=== PATIENT | female | born 1960 | race Caucasian/White ===

== ENCOUNTER 2016-12-30 13:56 | Observation (INO) | payer OTHER ==
[2016-12-30] VITALS (10 sets, daily range): BP systolic 99–158; BP diastolic 57–82; PULSE 62–97; RESP 15–22; TEMP 98.1–98.5; O2SAT 93–100
[~2016-12-30] VITALS: Ht 165.1 cm; Wt 72.5 kg
[~2016-12-30 13:56] MED LIST: ASPI81 PO; CALC600T34 PO; FEXO180 PO; FISH1000 PO; GINKO BILOBA PO; TAB-TAB PO; [UNRECOGNIZED DRUG - OTHER] PO
--- NOTE | 2016-12-30 14:13 | PD ---
Physical Exam Time Seen by Provider: 14:12 Narrative 56yo F c/o numbness, tingling, and pain in her left upper arm, on and off for about a week. Having left sided chest pain that started about an hour ago. + heart palpitations. Denies SOB. Patient seen in triage. VS reviewed. Awaiting bed placement. Data Data Last Documented VS Vital Signs Date Time Temp Pulse Resp B/P Pulse Ox O2 Delivery O2 Flow Rate FiO2 12/30/16 14:00 98.1 97 22 141/76 98 Room Air MDM Supervised Visit with MANDO: Dee Dee Glasgow Dec 30, 2016 14:13
[2016-12-30 15:27] LABS: BASOPHIL # 0.1 TH/MM3 (0-0.2); BASOPHIL % 0.9 % (0.0-2.0); EOSINOPHIL # 0.1 TH/MM3 (0-0.4); EOSINOPHIL % 1.5 % (0.0-4.0); HEMATOCRIT 44.2 % (35.0-46.0); HEMO FLAGS DIFF FINAL; LYMPHOCYTE # 2.3 TH/MM3 (1.0-4.8); MEAN CELL VOLUME 88.5 FL (80.0-100.0); MEAN CORPUSCULAR HEMOGLOBIN 29.8 PG (27.0-34.0); MEAN CORPUSCULAR HGB CONC 33.6 % (32.0-36.0); MONO % 6.2 % (0.0-8.0); NEUT % 62.4 % (16.0-70.0); PLATELET COUNT 263 TH/MM3 (150-450); RED BLOOD COUNT 4.99 MIL/MM3 (4.00-5.30); RED CELL DISTRIBUTION WIDTH 13.5 % (11.6-17.2)
[2016-12-30 15:33] LABS: PROTHROMBIN TIME - PATIENT 10.6 SEC (9.8-11.6)
[2016-12-30 15:37] LABS: BLOOD, URINE NEG (NEG); GLUCOSE,URINE NEG (NEG); KETONE, URINE NEG (NEG); NITRITE,URINE NEG (NEG); SQUAMOUS EPITHELIAL CELL URINE <1 /hpf (0-5); URINE COLOR LIGHT-YELLOW (YELLW/STRAW)
[2016-12-30 15:39] LABS: COMMENT (UR) CULT NOT INDICATED; CULTURE IF INDICATED CULT NOT INDICATED
[2016-12-30 15:48] LABS: ANION GAP 6 MEQ/L (5-15); BICARBONATE 28.7 MEQ/L (21.0-32.0); BLOOD UREA NITROGEN 21 MG/DL (7-18); CHLORIDE 104 MEQ/L (98-107); CREATINE KINASE 88 U/L (26-192); GLOMERULAR FILTRATION RATE 62 ML/MIN (>89); POTASSIUM 3.3 MEQ/L (3.5-5.1); SODIUM (NA) 139 MEQ/L (136-145)
[2016-12-30] MEDS ORDERED: POTASSIUM CHLORIDE 20 MEQ CONTROLLED RELEASE TAB PO ONE (16:00)
--- NOTE | 2016-12-30 16:04 | RADRPT ---
EXAM DATE/TIME: 12/30/2016 15:12 [place] COMPARISON: No previous studies available for comparison. INDICATIONS : Chest palpitations and left shoulder pain. MEDICAL HISTORY : high blood pressure SURGICAL HISTORY : None. ENCOUNTER: Initial ACUITY: 1 week PAIN SCORE: 0/10 LOCATION: Bilateral chest FINDINGS: PA and lateral views of the chest demonstrate the lungs to be symmetrically aerated without evidence of mass, infiltrate or effusion. The cardiomediastinal contours are unremarkable. Osseous structure s are intact. CONCLUSION: 1. No acute cardiopulmonary disease. Soren Quan MD on December 30, 2016 at 16:02 Board Certified Radiologist. This report was verified electronically.
[2016-12-30] MEDS ORDERED: [UNRECOGNIZED DRUG - CODE] PO (16:05)
[2016-12-30] MEDS ORDERED: ROBA750T PO (16:05)
[2016-12-30] MEDS ORDERED: MULT1TAB46 PO (16:05)
[2016-12-30] MEDS ORDERED: CYAN25005 PO (16:05)
[2016-12-30] MEDS ORDERED: AMLO5TAB2 PO (16:05)
[2016-12-30] MEDS ORDERED: LISI10TA3 PO (16:05)
[2016-12-30] MEDS ORDERED: NITROGLYCERIN 0.4 MG SL 25 TABS/BTL SL ONE (16:30)
[2016-12-30] MEDS ORDERED: ASPIRIN 325 MG TAB PO ONE (16:30)
--- NOTE | 2016-12-30 17:16 | PD ---
HPI Chief Complaint: Chest Pain Time Seen by Provider: 16:01 Travel History International Travel<30 days: No Contact w/Intl Traveler<30days: No Traveled to known affect area: No History of Present Illness HPI This is a 56-year-old postmenopausal female with a past medical history of hypertension hold as a father who was recently diagnosed with coronary artery disease he isn't currently in his 70s that presents with a complaint of five- day history of intermittent left arm pain and numbness and neck pain. Patient notes mild left-sided chest pain. Patient works for [employer] and noted palpitations and reoccurring discomfort in the left arm and in the left side of the neck. Patient denies shortness of breath and lightheadedness dizziness nausea and vomiting. However patient felt as if she could belch she would feel much better. Patient has never had a stress test. Patient also denies back pain, no pain weakness in the arms and legs off tenderness and swelling . PFSH Past Medical History Cancer: No Cardiovascular Problems: No Diabetes: No Diminished Hearing: No Glaucoma: No Hepatitis: No Hiatal Hernia: No Hypertension: Yes Medical other: Yes (ARTHRITIS) Respiratory: Yes (ASTHMA CHILD) Thyroid Disease: No Past Surgical History Abdominal Surgery: No Cardiac Surgery: No Ear Surgery: No Endocrine Surgery: No Eye Surgery: No Genitourinary Surgery: No Gynecologic Surgery: Yes (D&C) Oral Surgery: No Pacemaker: No Thoracic Surgery: Yes (BREAST AUGMENTATION) Other Surgery: Yes Social History Alcohol Use: Yes (OCC.) Tobacco Use: Yes (QUIT 1977) Substance Use: No Allergies-Medications (Allergen,Severity, Reaction): Coded Allergies: Onion (Unverified Allergy, Severe, n/v, 05/15/10) Codeine (Verified Allergy, Unknown, 12/30/16) Reported Meds & Prescriptions Reported Meds & Active Scripts Active Reported Vitamin B-50 Complex Tablet (Vitamin B Complex/Folic Acid) 0.4 Mg Tablet 1 Tab PO DAILY Vitamin B12 (Cyanocobalamin (Vitamin B-12)) 2,500 Mcg Tab.chew 1 Tab PO DAILY Multi Vitamin Daily (Multiple Vitamin) 1 Tab Tab 1 Tab PO DAILY Robaxin (Methocarbamol) 750 Mg Tab 750 Mg PO DAILY Amlodipine (Amlodipine Besylate) 5 Mg Tab 5 Mg PO DAILY Lisinopril 10 Mg Tab 10 Mg PO DAILY Review of Systems Except as stated in HPI: all other systems reviewed are Neg General / Constitutional: No: Fever, Chills, Weight Gain, Weight Loss, Other Eyes: No: Diploplia, Blurred Vision, Photophobia, Drainage, Redness, Foreign Body Sensation, Pain, Tearing, Blind Spots, Visual changes, Blindness, Other HENT: No: Headaches, Vertigo, Lightheadedness, Sore Throat, Rhinitis, Rhinorrhea, Congestion, Nosebleed, Neck Stiffness, Neck Pain, Masses, Gingival Bleeding, Dental Difficulties, Ear Discharge, Earache, Other Cardiovascular: Positive: Chest Pain or Discomfort, Palpitations, No: Irregular Rhythm, Tachycardia, Diaphoresis, Syncope, Dyspnea on exertion, Varicosities, Edema, Cyanosis, Varicosities, Phlebitis, Claudication, Other Respiratory: Positive: Cough, No: Shortness of Breath, Wheezing, Sneezing, Orthopnea, Hemoptysis, Stridor, Night Sweats, Pleuritic Pain, Other Gastrointestinal: Positive: Nausea, No: Vomiting, Diarrhea, Abdominal Pain, Hematemesis, Hematochezia, Constipation, Changes in Bowel Habits, Indigestion, Dysphagia, Loss of Appetite, Other Genitourinary: No: Urgency, Frequency, Dysuria, Nocturia, Hematuria, Decreased Urinary Output, Oliguria, Hesitancy, Dribbling, Incontinence, Pelvic Pain, Flank Pain, Dyspareunia, Discharge, Dysmenorrhea, Menorrhagia, Metorrhagia, Vaginal Bleeding, Other Musculoskeletal: Positive: Other (left arm pain neck pain left side) Skin: No Rash, No Itching, No Dryness, No Lumps, No Hives, No Change in Pigmentation, No Change in nails, No Alopecia, No Lesions, No Breast Lumps, No Breast Tenderness, No Breast Swelling, No Other Neurologic: Positive: Other (left arm numbness and tingling ), No: Weakness, Dizziness, Syncope, Focal Abnormalities, Coordination Problem, Tremor, Ataxia, Headache, Change in Mentation, Slurred Speech, Paresthesia, Incontinence, Seizures, Sensory Disturbance Psychiatric: No: Anxiety, Depression, Suicidal Ideations, Disorder of Thought, Mood Disorder, Substance Abuse, Homicidal Ideation, Other Endocrine: No: Heat Intolerance, Cold Intolerance, Polyuria, Polydipsia, Other Hematologic/Lymphatic: No: Easy Bruising, Lymph Node Enlargement, Other Physical Exam Narrative GENERAL: 56-year-old in no apparent distress SKIN: Focused skin assessment warm/dry.no lesions no cyanosis no erythema HEAD: Atraumatic. Normocephalic. EYES: Pupils equal and round and reactive . No scleral icterus. No injection or drainage. ENT: No nasal bleeding or discharge. Mucous membranes pink and moist. NECK: Trachea midline. No JVD. No reproducible neck tenderness on top CARDIOVASCULAR: S1-S2 appreciated. Regular rate and rhythm. No murmur appreciated. Pulses normal throughout no reproducible chest wall tenderness on palpation RESPIRATORY: No accessory muscle use. Clear to auscultation. Breath sounds equal bilaterally. GASTROINTESTINAL: Abdomen soft, non-tender, nondistended. Hepatic and splenic margins not palpable. Bowel sounds normal. No peritoneal signs. MUSCULOSKELETAL: No obvious deformities. No clubbing. No cyanosis. No edema. Neck pain and chest pain not exacerbated with movement of left arm and neck or thoracic spine NEUROLOGICAL: Awake and alert and oriented 3.. No obvious cranial nerve deficits. Motor and sensory exam grossly within normal limits. Normal speech. No meningeal signs. PSYCHIATRIC: Appropriate mood and affect; insight and judgment normal. No suicidal or homicidal ideation. Data Data Last Documented VS Vital Signs Date Time Temp Pulse Resp B/P Pulse Ox O2 Delivery O2 Flow Rate FiO2 12/30/16 16:05 100 Room Air 12/30/16 14:00 98.1 97 22 141/76 Orders Electrocardiogram (12/30/16 14:25) Complete Blood Count With Diff (12/30/16 14:25) Basic Metabolic Panel (Bmp) (12/30/16 14:25) Ckmb (Isoenzyme) Profile (12/30/16 14:25) Troponin I (12/30/16 14:25) Iv Access Insert/Monitor (12/30/16 14:25) Ecg Monitoring (12/30/16 14:25) Oxygen Administration (12/30/16 14:25) Oximetry (12/30/16 14:25) Prothrombin Time / Inr (Pt) (12/30/16 14:45) Urinalysis - C+S If Indicated (12/30/16 14:45) Chest, Pa & Lat (12/30/16 14:25) Potassium Chloride (Kcl) (12/30/16 16:00) Aspirin (Aspirin) (12/30/16 16:30) Nitroglycerin Sl (Nitrostat Sl) (12/30/16 16:30) Place In Observation (12/30/16 17:27) Activity Bed Rest With Brp (12/30/16:) Vital Signs (Adult) Q4H (12/30/16 17:) Cardiac Rhythm .As Directed (12/30/16 17:) Notify Dr: Other .PRN (12/30/16) Notify Dr. Parameters (12/30/16) Resp Oxygen Nasal Cannula (12/30/16 ) Diet Heart Healthy (12/30/16 Dinner) Ckmb (Isoenzyme) Profile (12/30/16 17:40) Ckmb (Isoenzyme) Profile (12/30/16 20:40) Troponin I (12/30/16 20:40) Troponin I (12/30/16 23:40) Electrocardiogram (12/30/16:) Electrocardiogram (12/30/16 20:27) ^ Obtain (12/30/16:) Sodium Chloride 0.9% Flush (Ns Flush) (12/30/16 17:30) Sodium Chloride 0.9% Flush (Ns Flush) (12/30/16 21:00) Nitroglycerin Sl (Nitrostat Sl) (12/30/16 17:30) Aspirin (Aspirin) (12/31/16 09:00) Mortarman / Telemetry LEVY.Q8H (12/30/16 17:) Labs Laboratory Tests Test 12/30/16 14:40 White Blood Count 8.0 TH/MM3 Red Blood Count 4.99 MIL/MM3 Hemoglobin 14.8 GM/DL Hematocrit 44.2 % Mean Corpuscular Volume 88.5 FL Mean Corpuscular Hemoglobin 29.8 PG Mean Corpuscular Hemoglobin 33.6 % Concent Red Cell Distribution Width 13.5 % Platelet Count 263 TH/MM3 Mean Platelet Volume 9.0 FL Neutrophils (%) (Auto) 62.4 % Lymphocytes (%) (Auto) 29.0 % Monocytes (%) (Auto) 6.2 % Eosinophils (%) (Auto) 1.5 % Basophils (%) (Auto) 0.9 % Neutrophils # (Auto) 5.0 TH/MM3 Lymphocytes # (Auto) 2.3 TH/MM3 Monocytes # (Auto) 0.5 TH/MM3 Eosinophils # (Auto) 0.1 TH/MM3 Basophils # (Auto) 0.1 TH/MM3 CBC Comment DIFF FINAL Differential Comment Prothrombin Time 10.6 SEC Prothromb Time International 1.0 RATIO Ratio Urine Color LIGHT-YELLOW Urine Turbidity CLEAR Urine pH 6.0 Urine Specific [place] 1.004 Urine Protein NEG mg/dL Urine Glucose (UA) NEG mg/dL Urine Ketones NEG mg/dL Urine Occult Blood NEG Urine Nitrite NEG Urine Bilirubin NEG Urine Urobilinogen LESS THAN 2.0 MG/DL Urine Leukocyte Esterase NEG Urine RBC LESS THAN 1 /hpf Urine Squamous Epithelial <1 /hpf Cells Microscopic Urinalysis Comment CULT NOT INDICATED Sodium Level 139 MEQ/L Potassium Level 3.3 MEQ/L Chloride Level 104 MEQ/L Carbon Dioxide Level 28.7 MEQ/L Anion Gap 6 MEQ/L Blood Urea Nitrogen 21 MG/DL Creatinine 0.93 MG/DL Estimat Glomerular Filtration 62 ML/MIN Rate Random Glucose 103 MG/DL Calcium Level 10.0 MG/DL Total Creatine Kinase 88 U/L Troponin I LESS THAN 0.02 NG/ML MDM Medical Decision Making Medical Screen Exam Complete: Yes Emergency Medical Condition: Yes Medical Record Reviewed: Yes Interpretation(s) EKG shows normal sinus rhythm nonspecific ST changes Differential Diagnosis Pharyngeal diagnoses chest wall pain anxiety acute coronary syndrome cervicalgia Narrative Course 6-year-old with risk factors of hypertension postmenopausal state father just recently diagnosed with CAD but he was in the 70s chest pain not reproducible on exam and occurs at rest with associated left arm pain and left neck pain troponin time 1 negative EKG shows a nonischemic pattern chest x-ray unremarkable patient given an aspirin and 1 sublingual nitroglycerin and states she feels better Transfer patient to the chest pain center for repeat enzymes and possible stress test in the a.m. for further management. Diagnosis Primary Impression: Chest pain at rest Additional Impression: left arm and neck discomfort Admitting Information Admitting Physician Requests: Observation Condition: Stable Yaritza Landin MD Dec 30, 2016 17:16
[2016-12-30] MEDS ORDERED: NITROGLYCERIN 0.4 MG SL 25 TABS/BTL SL PRN ×2 (17:30→19:15)
[2016-12-30] MEDS ORDERED: SODIUM CHLORIDE 0.9% FLUSH 10 ML FLUSH IV FLUSH PRN ×2 (17:30→19:15)
[2016-12-30 19:10] LABS: CREATINE KINASE 73 U/L (26-192)
[2016-12-30] MEDS ORDERED: ONDANSETRON HCL 4 MG/2 ML VIAL IV PRN (19:15)
[2016-12-30] MEDS ORDERED: ACETAMINOPHEN 500 MG CPLT PO PRN (19:15)
[2016-12-30] MEDS: SODIUM CHLORIDE 0.9% FLUSH 10 ML FLUSH IV FLUSH SCH ×2 (20:57)
[2016-12-30 21:46] LABS: CREATINE KINASE 63 U/L (26-192)
[2016-12-31 03:44] VITALS: BP 100/64; PULSE 74; RESP 18; TEMP 97.8; O2SAT 95
[2016-12-31 07:36] VITALS: BP 105/75; PULSE 74; RESP 18; TEMP 97.8; O2SAT 95
[2016-12-31] MEDS ORDERED: ASPIRIN 325 MG TAB PO SCH (09:00)
[2016-12-31 09:14] VITALS: O2SAT 92
--- NOTE | 2016-12-31 09:26 | HHI.HP ---
HPI Primary Care Physician Frank Chahal MD, PhD Chief Complaint Chest pressure History of Present Illness 56-year-old female with known hypertension presents to emergency room for further evaluation of chest pressure. Onset yesterday afternoon at 1 PM while at work. She is employee for [employer]. She was sitting during initial episode. Location left anterior chest. Described as pressure, throbbing, with occasional fluttering feeling. Duration approximately 1 minute. No known precipitating or relieving factors. Breathing did not make pain better or worse. Although she does state she felt if she could belch would help the discomfort. No associated symptoms of shortness of breath, nausea, or diaphoresis. Endorses over the last week intermittent left arm and left shoulder tingling. Review of Systems General: No fatigue,weakness, fever, chills, recent illness, or change in appetite HEENT: No PETE, no vision changes, no nasal congestion or drainage, no dysphasia CV: As stated above. Denies any current chest pain or pressure. Endorses occasional palpitations throughout evening. RESP: No SOB, cough, wheeze, or recent URI GI: No nausea, vomiting, bowel changes, diarrhea, constipation, or pain. No unintentional weight gain or weight loss : No dysuria, urgency, or frequency EXT: No lower leg edema, no paraesthesias MS: No discomfort or change in ROM NEURO: No difficulty with balance, LOC, motor/sensory deficits PSYCH: No anxiety, depression, or situational stress SKIN: No rashes, no concerning lesions Past Family Social History Allergies: Coded Allergies: Onion (Unverified Allergy, Severe, n/v, 05/15/10) Codeine (Verified Allergy, Unknown, 12/30/16) Past Medical History Hypertension, arthritis, C3-C4 bulging disc Past Surgical History Right trigger thumb surgery Reported Medications Active Reported Vitamin B6 daily Vitamin B2 daily Multi Vitamin Daily (Multiple Vitamin) 1 Tab Tab 1 Tab PO DAILY Robaxin (Methocarbamol) 750 Mg Tab 750 Mg PO DAILY Amlodipine (Amlodipine Besylate) 5 Mg Tab 5 Mg PO DAILY Lisinopril 10 Mg Tab 10 Mg PO DAILY Hydrochlorothiazide 12.5 mg daily Active Ordered Medications Current Medications Medications (Trade) Dose Ordered Sig/Bella Route Start Time Stop Time Status Last Admin (Nitrostat Sl) 0.4 mg Q5M PRN SL 12/30/16 17:30 (Aspirin) 325 mg DAILY PO 12/31/16 09:00 (Tylenol) 500 mg Q4H PRN PO 12/30/16 19:15 (Zofran Inj) 4 mg Q6H PRN IV 12/30/16 19:15 (Nitrostat Sl) 0.4 mg Q5M PRN SL 12/30/16 19:15 Family History Noncontributory for early onset cardiovascular disease Social History Known hypertension controlled with current medication regimen. No known diabetes or hyperlipidemia. Lifelong nonsmoker. Denies any alcohol or illegal drug use. Endorses she was an active lifestyle. She is employee for [employer]. Past cardiac testing None Physical Exam Vital Signs Vital Signs Date Time Temp Pulse Resp B/P Pulse Ox O2 Delivery O2 Flow Rate FiO2 12/31/16 09:14 92 12/31/16 07:36 97.8 74 18 105/75 95 12/31/16 03:44 97.8 74 18 100/64 95 12/30/16 23:14 98.5 78 18 99/65 93 12/30/16 23:00 62 12/30/16 22:00 74 16 126/63 98 Room Air 12/30/16 21:02 98 12/30/16 19:37 67 16 117/79 98 Room Air 12/30/16 16:05 100 Room Air 12/30/16 16:05 100 Room Air 12/30/16 16:00 68 16 135/82 96 Room Air 12/30/16 14:00 98.1 97 22 141/76 98 Room Air Physical Exam GENERAL: Alert WN, WD, NAD, pleasant, female HEAD: NC, AT EYES: Sclera clear, conjunctiva without injection, pupils equal and round NECK: Supple, no masses, trachea midline CV: RRR, without murmur, rub, gallop, no JVD, S1-S2 no S3-S4. RESP: Clear lungs throughout bilateral, no crackles, wheeze, rhonchi, symmetrical chest rise, nonlabored, able to speak in full sentences ABD: Soft, NT, ND, no masses, positive bowel tones EXT: Pulses +24, no dependent edema MS: Normal tone 4 extremities, nontender, no obvious deformities, full range of motion NEURO: CN II through CN XII grossly intact, motor strength 5/5, gait WNL PSYCH: A+O 3, pleasant affect, appropriate speech, appropriate mood and affect , insight and judgment SKIN: Normal turgor, normal texture, no lesions, no rashes, brisk cap refill, even hair distribution Laboratory Laboratory Tests Test 12/30/16 12/30/16 12/30/16 14:40 17:50 20:40 White Blood Count 8.0 Red Blood Count 4.99 Hemoglobin 14.8 Hematocrit 44.2 Mean Corpuscular Volume 88.5 Mean Corpuscular Hemoglobin 29.8 Mean Corpuscular Hemoglobin 33.6 Concent Red Cell Distribution Width 13.5 Platelet Count 263 Mean Platelet Volume 9.0 Neutrophils (%) (Auto) 62.4 Lymphocytes (%) (Auto) 29.0 Monocytes (%) (Auto) 6.2 Eosinophils (%) (Auto) 1.5 Basophils (%) (Auto) 0.9 Neutrophils # (Auto) 5.0 Lymphocytes # (Auto) 2.3 Monocytes # (Auto) 0.5 Eosinophils # (Auto) 0.1 Basophils # (Auto) 0.1 CBC Comment DIFF FINAL Differential Comment Prothrombin Time 10.6 Prothromb Time International 1.0 Ratio Urine Color LIGHT-YELLOW Urine Turbidity CLEAR Urine pH 6.0 Urine Specific [place] 1.004 Urine Protein NEG Urine Glucose (UA) NEG Urine Ketones NEG Urine Occult Blood NEG Urine Nitrite NEG Urine Bilirubin NEG Urine Urobilinogen LESS THAN 2.0 Urine Leukocyte Esterase NEG Urine RBC LESS THAN 1 Urine Squamous Epithelial <1 Cells Microscopic Urinalysis Comment CULT NOT INDICATED Sodium Level 139 Potassium Level 3.3 Chloride Level 104 Carbon Dioxide Level 28.7 Anion Gap 6 Blood Urea Nitrogen 21 Creatinine 0.93 Estimat Glomerular Filtration 62 Rate Random Glucose 103 Calcium Level 10.0 Total Creatine Kinase 88 73 63 Troponin I LESS THAN 0.02 LESS THAN 0.02 LESS THAN 0.02 Result Diagram: 12/30/16 1440 12/30/16 1440 Imaging Last Impressions Chest X-Ray 12/30/16 1425 Signed Impressions: Service Date/Time: December 15:12 - CONCLUSION: 1. No acute cardiopulmonary disease. Soren Quan MD Course EKG 3 EKGs show normal sinus rhythm, normal axis, no ST or T-segment changes Assessment and Plan Assessment and Plan #1 Chest painadmitted to chest pain center. Ruled out with 3 sets of EKGs and cardiac enzymes. Monitor overnight. Seen and evaluated by Dr. Wes De Jesus. Will complete exercise stress test this a.m. If stress test unremarkable with no signs of ischemia will discharge later this afternoon. This been discussed with patient she is agreeable to plan of care. #2 Hypertensioncontinue amlodipine, lisinopril, and HCTZ. Cheyanne Villafana Dec 31, 2016 09:26
[2016-12-31] MEDS: SODIUM CHLORIDE 0.9% FLUSH 10 ML FLUSH IV FLUSH SCH ×2 (09:28→09:29)
[2016-12-31] MEDS ORDERED: amLODIPine BESYLATE 5 MG TAB PO SCH (10:30)
[2016-12-31] MEDS ORDERED: MULTIVITAMIN TAB PO SCH (10:30)
[2016-12-31] MEDS ORDERED: LISINOPRIL 10 MG TAB PO SCH (10:30)
--- NOTE | 2016-12-31 11:16 | HHI.DCPOC ---
Discharge Care Plan Diagnosis: (1) Atypical chest pain Goals to Promote Your Health * To prevent worsening of your condition and complications * To maintain your health at the optimal level Directions to Meet Your Goals Take your medications as prescribed Follow your dietary instruction Follow activity as directed Keep your appointments as scheduled Take your immunizations and boosters as scheduled If your symptoms worsen call your PCP, if no PCP go to Urgent Care Center or Emergency Room Smoking is Dangerous to Your Health. Avoid second hand smoke Call the 24-hour hour crisis hotline for domestic abuse at Cheyanne Villafana Dec 31, 2016 11:16
[2016-12-31] MEDS ORDERED: HYDR12.56 PO (11:20)
--- NOTE | 2016-12-31 14:24 | EKG ---
Date Performed: 12/30/2016 Time Performed: 20:35:13 PTAGE: 56 years EKG: Sinus rhythm NORMAL ECG PREVIOUS TRACING : 12/30/2016 17.44 Since previous tracing, no significant change noted DOCTOR: Wes De Jesus Interpretating Date/Time 12/31/2016 14:22:08
--- NOTE | 2016-12-31 14:25 | EKG ---
Date Performed: 12/30/2016 Time Performed: 17:44:52 PTAGE: 56 years EKG: Sinus rhythm LOW QRS VOLTAGE IN PRECORDIAL LEADS BORDERLINE ECG PREVIOUS TRACING : 12/30/2016 14.34 Since previous tracing, no significant change noted DOCTOR: Wes De Jesus Interpretating Date/Time 12/31/2016 14:23:05
--- NOTE | 2016-12-31 14:26 | EKG ---
Date Performed: 12/30/2016 Time Performed: 14:34:51 PTAGE: 56 years EKG: Sinus rhythm NORMAL ECG PREVIOUS TRACING : 04/10/2010 06.48 Since previous tracing, no significant change noted DOCTOR: Wes De Jesus Interpretating Date/Time 12/31/2016 14:23:39
--- NOTE | 2016-12-31 14:31 | TR ---
Date Performed: 12/31/2016 Time Performed: 10:41:35 DOCTOR: Wes De Jesus DRUG LIST: CLINICAL HISTORY: CHEST PAIN REASON FOR TEST: REASON FOR ENDING: OBSERVATION: CONCLUSION: Rc protocol completed. Stopped sec to exceeding target heart rate and leg fatigue . Maximum PW=994 % Target HR Achieved=88.0% Maximum GZ=512/72 Total Exercise Time=8:01. No reprod anaya st discomfort. Rare PVC during recovery. Good exercise tolerance. Normal bp response. Recovery quick and unremarkable. Max BP 188/66 entry error, Max bp 140/72. COMMENTS: Patient exercised using the Rc protocol. No electrocardiographic changes were seen to suggest ischemia. Hemodynamic response to exercise was normal. No significant arrhythmia was prese nt.
== END 2016-12-31 11:56 | disposition home or self-care (01) ==
LOC: NEPE 13:56 → NEDA 21:43 → NEPGCP 22:40
PROVIDERS: ADMIT Internal Medicine Cardiovascular Disease; ATTEND Internal Medicine Cardiovascular Disease
DX: R07.89 Other chest pain (principal); I10 Essential (primary) hypertension; M19.90 Unspecified osteoarthritis, unspecified site; J45.909 Unspecified asthma, uncomplicated; Z88.5 Allergy status to narcotic agent; Z91.018 Allergy to other foods; Z87.891 Personal history of nicotine dependence; Z78.0 Asymptomatic menopausal state
CPT/HCPCS: 71020; 80048; 81001; 82550; 84484; 85025; 85610; 93005; 93017; 99285; G0378; 71010